=== PATIENT | female | born 1960 | race Two or more races ===

== ENCOUNTER → 2022-04-16 | Outpatient (CLI) | payer MEDICAID ==
[2022-04-16 09:40] LABS: Albumin 3.6 g/dL (3.4-5.0)
[2022-04-16 09:53] LABS: Bilirubin, Direct 0.1 mg/dL (0-0.2); Bilirubin, Total 0.4 mg/dL (0.2-1.0); Total Protein 7.9 g/dL (6.4-8.2)
== END | disposition home or self-care (01) ==
LOC: LAB 08:51
PROVIDERS: ATTEND Student in an Organized Health Care Education/Training Program
DX: B35.1 Tinea unguium (principal)
CPT/HCPCS: 36415; 80076

== ENCOUNTER → 2022-06-03 | Outpatient (CLI) | payer MEDICAID ==
[2022-06-03 12:14] LABS: Albumin 3.3 g/dL (3.4-5.0)
[2022-06-03 12:17] LABS: Alanine Aminotransferase 19 U/L (13-56); Alkaline Phosphatase 121 U/L (45-117); Aspartate Aminotransferase 17 U/L (15-37); Bilirubin, Direct < 0.1 mg/dL (0-0.2); Bilirubin, Total 0.4 mg/dL (0.2-1.0); Total Protein 7.8 g/dL (6.4-8.2)
== END | disposition home or self-care (01) ==
LOC: LAB 11:24
DX: B38.1 Chronic pulmonary coccidioidomycosis (principal)
CPT/HCPCS: 36415; 80076